=== PATIENT | male | born 1960 | race Caucasian/White ===

== ENCOUNTER 2019-03-15 06:12 | Day surgery (SDC) | payer MEDICAID ==
[2019-03-15] MEDS ORDERED: OXYCODONE/ACETAMINOPHEN (5/325) TAB PO ×2 (08:00)
[2019-03-15] MEDS ORDERED: MEPERIDINE 25 MG INJ IV (08:00)
[2019-03-15] MEDS ORDERED: FENTAnyl 50 MCG/ML VIAL IV (08:00)
[2019-03-15] MEDS ORDERED: LABETALOL HCL 20MG INJ IV (08:00)
[2019-03-15] MEDS ORDERED: ONDANSETRON 4 MG INJ IV (08:00)
[2019-03-15] MEDS ORDERED: LIDOCAINE 2% (SDV) 5 ML INJ (08:01)
[2019-03-15] MEDS ORDERED: PROPOFOL 20 ML ×2 (08:01→08:41)
== END 2019-03-15 15:35 | disposition home or self-care (01) ==
LOC: GIL 06:12
DX: D12.5 Benign neoplasm of sigmoid colon (principal); K64.8 Other hemorrhoids; D50.9 Iron deficiency anemia, unspecified; K31.9 Disease of stomach and duodenum, unspecified; I12.9 Hypertensive chronic kidney disease with stage 1 through stage 4 chronic kidney disease, or unspecified chronic kidney disease; N18.9 Chronic kidney disease, unspecified; E78.5 Hyperlipidemia, unspecified
CPT/HCPCS: 43239; 88305; 88312